=== PATIENT | male | born 1960 | race Two or more races ===

== ENCOUNTER 2020-08-12 13:30 | Emergency (ER) | payer MEDICARE, MEDICAID ==
[2020-08-12 13:38] VITALS: BP 132/70
--- NOTE | 2020-08-12 14:35 | ER Document Report ---
ED Medical Screen (RME) - General Chief Complaint: Eye Problem Stated Complaint: RIGHT EYE REDNESS,IRRITATION Time Seen by Provider: 08/12/20 14:29 Mode of Arrival: Ambulatory Information source: Patient Notes: 60-year-old male patient contact lens wearer presenting with complaints of right eye pain, swelling and blurred vision. Patient reports symptoms ongoing for approximately 1 month. He states he has not worn contacts in the last 2 weeks. He states he has tried multiple eyedrops to try to resolve his symptoms. He has not seen an technical communication teacher as he does not have one in the local area. Swelling noted to right upper lid, swelling noted inside corner of right eye. I have greeted and performed a rapid initial assessment of this patient. A comprehensive ED assessment and evaluation of the patient, analysis of test results and completion of the medical decision making process will be conducted by additional ED providers. I have specifically instructed the patient or famil y members with the patient to immediately return to any nursing staff should anything change in the patient's condition or with their chief complaint. Physical Exam - Vital signs Vitals: Temp Pulse Resp BP Pulse Ox 98.0 F 55 L 20 132/70 H 99 08/12/20 13:38 08/12/20 13:38 08/12/20 13:38 08/12/20 13:38 08/12/20 13:38 Course - Vital Signs Vital signs: Temp Pulse Resp BP Pulse Ox 98.0 F 55 L 20 132/70 H 99 08/12/20 13:38 08/12/20 13:38 08/12/20 13:38 08/12/20 13:38 08/12/20 13:38
--- NOTE | 2020-08-12 15:38 | ER Document Report ---
ED Eye Complaint - General Chief Complaint: Eye Problem Stated Complaint: RIGHT EYE REDNESS,IRRITATION Time Seen by Provider: 08/12/20 14:29 Primary Care Provider: JOSE RESENDEZ MD [ACTIVE STAFF] - Follow up in 3-5 days () BING CHOI MD [ACTIVE STAFF] - Follow up as needed Mode of Arrival: Ambulatory Information source: Patient - HPI Notes: Patient is a 60 y/o male who presents with right upper eyelid swelling for the past month. Patient states the swelling spread to his inner eye about 1.5 weeks ago. He reports blurred vision but stopped wearing his contacts two weeks ago due to his symptoms. He reports his eye started hurting yesterday after putting sty medication on his eye and he reports its stung but denies eye pain currently. He reports occasional tearing but denies drainage, floaters, dizziness, headache and vomiting. Patient has not seen an certified coder as he is new to the area. He has a hx of cardiac stent placement and is currently on plavix. Past Medical History - General Information source: Patient - Social History Smoking Status: Current Every Day Smoker Cigarette use (# per day): Yes - 0.5 pack per day Frequency of alcohol use: Occasional Family History: Reviewed & Not Pertinent Review of Systems - Review of Systems Constitutional: No symptoms reported EENT: See HPI Cardiovascular: No symptoms reported Respiratory: No symptoms reported Gastrointestinal: No symptoms reported Genitourinary: No symptoms reported Male Genitourinary: No symptoms reported Musculoskeletal: No symptoms reported Skin: No symptoms reported Hematologic/Lymphatic: No symptoms reported Neurological/Psychological: No symptoms reported Physical Exam - Vital signs Vitals: Temp Pulse Resp BP Pulse Ox 98.0 F 55 L 20 132/70 H 99 08/12/20 13:38 08/12/20 13:38 08/12/20 13:38 08/12/20 13:38 08/12/20 13:38 - Notes Notes: PHYSICAL EXAMINATION: GENERAL: Well-appearing, well-nourished and in no acute distress. HEAD: Atraumatic, normocephalic. EYES: PEERLA, EOMI. Swelling to the conjunctiva of the right inner eye and medial upper eyelid. Area is nontender. No visible drainage. No erythema or warmth noted to the upper eyelid. Sclera anicteric. ENT: Moist mucous membranes. NECK: Normal range of motion LUNGS: Normal work of breathing HEART: 2+ radial pulses bilaterally EXTREMITIES: no pitting or edema. No cyanosis. NEUROLOGICAL: No focal neurological deficits. Moves all extremities spontaneously and on command. PSYCH: Normal mood, normal affect. SKIN: Warm, Dry, normal turgor, no rashes or lesions noted. - HEENT Visual acuity- Right eye: 20/50 Visual acuity- Left eye: 20/40 Visual acuity- Both eyes: 20/40 Corrective lenses worn: No - usually wears contacts Course - Re-evaluation Re-evalutation: Patient is a 60 y/o male who presents with right upper eyelid swelling for the past month. Vital signs are normal and stable. On exam, Swelling to the conjunctiva of the right inner eye and medial upper eyelid. Area is nontender with no erythema, warmth or drainage. Visual acuity consistent for not wearing corrective contact lenses. I consulted my supervising physician, Dr. Estes, concerning this patient and she agreed to evaluate them. After examining the patient, Dr. Estes believes the patient has a retention cyst of his conjunctiva of the right eye. She recommends that the patient follow up with ophthalmology for possible drainage and removal. Patient advised to continue warm compresses for relief. Return precautions and follow up instructions given. Patient understands and is in agreement with the plan. He will be discharged home. - Vital Signs Vital signs: Temp Pulse Resp BP Pulse Ox 98.0 F 55 L 20 132/70 H 99 08/12/20 13:38 08/12/20 13:38 08/12/20 13:38 08/12/20 13:38 08/12/20 13:38 Discharge - Discharge Clinical Impression: Conjunctival cyst of right eye Condition: Stable Disposition: HOME, SELF-CARE Additional Instructions: Follow up with Dr. Resendez, ophthalmology, as soon as you can get an appointment for the retention cyst of your right eye. Continue to use warm compresses for relief. Return if your symptoms worsen or if you begin to have worsening sw elling, redness, warmth and pain to the right eye and/or eyelid. Referrals: JOSE RESENDEZ MD [ACTIVE STAFF] - Follow up in 3-5 days () BING CHOI MD [ACTIVE STAFF] - Follow up as needed
== END 2020-08-12 16:35 | disposition home or self-care (01) ==
LOC: ER 13:30
DX: H11.441 Conjunctival cysts, right eye (principal); F17.210 Nicotine dependence, cigarettes, uncomplicated
CPT/HCPCS: 99282